=== PATIENT | female | born 1980 ===

== ENCOUNTER 2025-01-09 05:47 | Outpatient (CLI) | payer OTHER ==
[~2025-01-09 05:47] MED LIST: KEPPRA500 MG PO; LAMICTAL100 M1 PO
== END 2025-01-09 14:15 | disposition home or self-care (01) ==
LOC: LAB 05:47
PROVIDERS: ATTEND Anesthesiology
DX: S83.511A Sprain of anterior cruciate ligament of right knee, initial encounter (principal)

== ENCOUNTER 2025-01-09 05:57 | Day surgery (SDC) | payer OTHER ==
[2024-12-27 12:09] VITALS: BP 109/73
[~2025-01-09] VITALS: Ht 170.2 cm; Wt 82.1 kg
[2025-01-09] MEDS ORDERED: GENTAMICIN SULFATE 40 MG/ML VIAL IR SCH (09:15)
[2025-01-09] MEDS ORDERED: CHLORHEXIDINE GLUCONATE 120 ML BOTTLE TOP SCH (09:15)
[2025-01-09] MEDS ORDERED: LIDOCAINE HCL 1%/EPINEPHRINE 50ML VIAL IJ SCH (09:15)
[2025-01-09] MEDS ORDERED: CEFAZOLIN SODIUM 1,000 MG VIAL IV SCH (09:30)
== END 2025-01-09 15:10 | disposition home or self-care (01) ==
LOC: CIR.AMB 05:57
PROVIDERS: ATTEND Obstetrics & Gynecology Gynecology
DX: N36.1 Urethral diverticulum (principal); Z88.6 Allergy status to analgesic agent